=== PATIENT | male | born 1975 | race Caucasian/White ===

== ENCOUNTER 2020-10-10 13:09 | Emergency (ER) | payer BC ==
[2020-10-10 13:18] VITALS: BP 109/74
--- NOTE | 2020-10-10 13:24 | ED Physician Documentation ---
PD HPI UPPER EXT INJURY - Stated complaint Stated Complaint: RT PINKY PX - Chief complaint Chief Complaint: Trauma Ext - History obtained from History obtained from: Patient - History of Present Illness Location: Right Timing - onset: Today Timing - details: Abrupt onset - Additonal information Additional information: Healthy right-handed 45-year-old gentleman [place] and slipped on some [place] onto his right hand. No other injuries. Has moderate pain at the PIP of the right fifth finger. Review of Systems Constitutional: reports: Reviewed and negative Nose: reports: Reviewed and negative Throat: reports: Reviewed and negative Cardiac: reports: Reviewed and negative PD PAST MEDICAL HISTORY - Present Medications Home Medications: Ambulatory Orders Medication Instructions Recorded Confirmed Escitalopram Oxalate [Lexapro] 20 mg PO DAILY 10/10/20 10/10/20 buPROPion [Wellbutrin Sr] 1 tab PO DAILY 10/10/20 10/10/20 - Allergies Allergies/Adverse Reactions: Allergies Allergy/AdvReac Type Severity Reaction Status Date / Time No Known Drug Allergies Allergy Verified 10/10/20 13:18 PD ED PE NORMAL - Vitals Vital signs reviewed: Yes - General General: Alert and oriented X 3, No acute distress - HEENT HEENT: PERRL, EOMI - Extremities Extremities: Other (Tender and bruised at the PIP of the right fifth finger with potential distal deformity that is mild. Full range of motion and normal neurovascular function though.) - Neuro Neuro: Alert and oriented X 3, Normal speech Results - Vitals Vitals: Vital Signs - 24 hr 10/10/20 13:16 Temperature 36.2 C L Heart Rate 105 H Respiratory 16 Rate Blood Pressure 109/74 O2 Saturation 100 Oxygen O2 Source Room air - Rads (name of study) R 5th finger Radiology: EMP read contemporaneously (Formal read of x-ray of the right finger was negative, I see a tiny avulsion fracture at the proximal/radial side of the second/middle phalanx.) PD MEDICAL DECISION MAKING - ED course ED course: X-ray of the finger demonstrates a very small avulsion fracture at the proximal part of the middle phalanx. He was juanita taped in standard fashion for comfort and advised on the need for follow-up in the diagnosis. Departure - Departure Disposition: 01 Home, Self Care Clinical Impression: Finger fracture, right Qualifiers: Encounter type: initial encounter Finger: little finger Fracture type: closed Phalanx: middle Fracture alignment: nondisplaced Qualified Code(s): S62.656A - Nondisplaced fracture of middle phalanx of right little finger, initial encounter for closed fracture Condition: Good Record reviewed to determine appropriate education?: Yes Instructions: ED Fx Finger Closed Follow-Up: [facility] [Provider Group] - Within 1 week Comments: Keep the fingers juanita taped for comfort for as long as it is painful. Return for new or worsening symptoms. Call the orthopedic office for follow-up.
--- NOTE | 2020-10-10 14:13 | XRAY Report ---
PROCEDURE: Finger(s) RT INDICATIONS: finger inj TECHNIQUE: AP hand, 3 views of the fifth finger(s) acquired. COMPARISON: None FINDINGS: Bones: No fractures or dislocations. No suspicious bony lesions. Soft tissues: No suspicious soft tissue calcifications. IMPRESSION: No trauma found. Reviewed by: Chris Wood MD on 10/10/2020 2:12 PM PDT Approved by: Chris Wood MD on 10/10/2020 2:12 PM PDT Station ID: [id number]
== END 2020-10-10 14:15 | disposition home or self-care (01) ==
LOC: ED 13:09
DX: S62.656A Nondisplaced fracture of middle phalanx of right little finger, initial encounter for closed fracture (principal); S60.051A Contusion of right little finger without damage to nail, initial encounter; W01.0XXA Fall on same level from slipping, tripping and stumbling without subsequent striking against object, initial encounter; Y93.01 Activity, walking, marching and hiking; Y92.832 Beach as the place of occurrence of the external cause
CPT/HCPCS: 99282; 99283